=== PATIENT | female | born 1990 | race Caucasian/White ===

== ENCOUNTER 2017-03-13 21:30 | Emergency (ER) | payer BC | END 2017-03-13 23:21 | disposition home or self-care (01) | LOC: D.ER 21:30 | DX: F41.9 Anxiety disorder, unspecified (principal); F43.10 Post-traumatic stress disorder, unspecified; R53.83 Other fatigue; R45.1 Restlessness and agitation; R51 Headache; F17.200 Nicotine dependence, unspecified, uncomplicated ==